=== PATIENT | male | born 1975 | race Caucasian/White ===

== ENCOUNTER 2022-07-12 20:09 | Emergency (ER) | payer OTHER ==
[2022-07-12 20:24] VITALS: BP 143/98
--- NOTE | 2022-07-12 20:31 | ED Physician Documentation ---
PD HPI LOWER EXT INJURY - Stated complaint Stated Complaint: RT ANKLE SWOLLEN/INJURIED - Chief complaint Chief Complaint: Ext Problem - History obtained from History obtained from: Patient - Additional information Additional information: Patient is a 46-year-old male with injury to his right ankle that occurred just prior to arrival. He was out hiking when he accidentally rolled his ankle and also scraped it against some rocks.He has had pain and swelling to the site since. He does not take a blood thinner. His last tetanus was 5 years ago.He did not sustain a head injury and denies pain elsewhere. Review of Systems Constitutional: denies: Fever Cardiac: denies: Chest pain / pressure Respiratory: denies: Dyspnea GI: denies: Abdominal Pain Skin: reports: Abrasion (s) Musculoskeletal: reports: Extremity pain Neurologic: denies: Headache PD PAST MEDICAL HISTORY - Present Medications Home Medications: Ambulatory Orders Medication Instructions Recorded Confirmed Celecoxib [CeleBREX] 100 mg PO 07/12/22 Cyclobenzaprine [Flexeril] 10 mg PO TID PRN 07/12/22 07/12/22 - Allergies Allergies/Adverse Reactions: Allergies Allergy/AdvReac Type Severity Reaction Status Date / Time amoxicillin Allergy Hives Verified 07/12/22 20:17 PD ED PE NORMAL - General General: Alert and oriented X 3, No acute distress, Well developed/nourished - HEENT HEENT: Atraumatic - Neck Neck: Supple, no meningeal sign - Cardiac Cardiac: Strong equal pulses - Respiratory Respiratory: No respiratory distress - Extremities Extremities: Other (Swelling and tenderness to distal medial aspect of right tibia, abrasions,No tenderness to foot, pedal pulses intact, motor and sensation intact in extremity, compartments are soft) - Neuro Neuro: No motor deficit, No sensory deficit PD ED PE EXPANDED - Extremities JANNETTE LE visual: 1 - abrasion, swelling, tenderness Results - Vitals Vitals: Vital Signs - 24 hr 07/12/22 20:18 Temperature 37.1 C Heart Rate 107 H Respiratory 17 Rate Blood Pressure 143/98 H O2 Saturation 97 Oxygen O2 Source Room air PD Medical Decision Making - ED course Complexity details: reviewed results, re-evaluated patient, d/w patient ED course: Presenting for evaluation of injury to right lower extremity. Has superficial abrasions with mild surrounding swelling. Otherwise he appears neurovascularly intact with strong distal pulses. Compartments of the right lower extremity are soft. An x-ray was obtained which I reviewed and see no signs of a fracture or dislocation. Patient appears to have isolated injury to the soft tissue. His tetanus is up-to-date. We have cleaned his abrasions and applied a dressing with bacitracin. We have also applied an Boyd wrap to the area to help with the swelling. I did offer the patient crutches but he declines and states that he feels okay to ambulate. Discussed continued conservative management as well as need for close follow-up with PCP. Patient is additionally advised on concerning symptoms to return for. Departure - Departure Disposition: 01 Home, Self Care Clinical Impression: Right leg injury, Leg abrasion Condition: Stable Instructions: ED Abrasion, ED Contusion Lower Ext Comments: Your Xray is negative for a fracture Or dislocation to the bone. You do have some superficial abrasions which we have cleaned and put a dressing on for tonight. You can remove the dressing tomorrow and let them air out. Please make sure to keep the wounds clean and dry. We have also applied an Boyd wrap tonight to help with the swelling and to aid with pain. I would recommend continue with an anti-inflammatory such as acetaminophen or ibuprofen, ice, elevation and rest. Return to the ER with any worsening symptoms such as concern for infection to the wounds. Discharge Date/Time: 07/12/22 21:13
[2022-07-12] MEDS ORDERED: BACITRACIN ZINC OINT 1 PACKET TOP STA (20:51)
--- NOTE | 2022-07-12 20:51 | XRAY Report ---
PROCEDURE: Ankle 3 View RT INDICATIONS: injury/abrasions TECHNIQUE: 3 views of the ankle were acquired. COMPARISON: None. FINDINGS: Bones: No fractures or dislocations. Ankle mortise is normally aligned. No suspicious bony lesions . Soft tissues: No tibiotalar joint effusion. Achilles tendon appears normal. IMPRESSION: 1. No fracture or dislocation. Reviewed by: Compa Calixto MD on 07/12/2022 8:49 PM PDT Approved by: Compa Calixto MD on 07/12/2022 8:49 PM PDT Station ID: [id number]
[2022-07-12] MEDS ORDERED: ACETAMINOPHEN 325 MG TABLET PO STA (20:56)
== END 2022-07-12 21:13 | disposition home or self-care (01) ==
LOC: ED 20:09
DX: S90.511A Abrasion, right ankle, initial encounter (principal); X50.1XXA Overexertion from prolonged static or awkward postures, initial encounter; Y93.01 Activity, walking, marching and hiking
CPT/HCPCS: 73610; 99283; A9270